=== PATIENT | female | born 1975 | race Two or more races ===

== ENCOUNTER 2016-09-17 23:41 | Emergency (ER) | payer SELFPAY ==
[~2016-09-17] VITALS: Ht 149.9 cm; Wt 90.3 kg
[2016-09-18 00:30] LABS: Basophils # (auto) 0.1 uL; Basophils % (auto) 0.4 % (0.0-2.0); DEFINITIVE VIEW TRANSMISSION; Eosinophils # (auto) 0.1 uL; Eosinophils % (auto) 1.1 % (0.0-7.0); Hematocrit 32.4 % (36.0-46.0); Hemoglobin 10.2 g/dL (12.2-16.2); Lymphocytes # (auto) 4.3 uL; Lymphocytes % (auto) 31.5 % (10.0-50.0); Mean Corpuscular Hemoglobin 23.6 pg (28.0-32.0); Mean Corpuscular Hgb Conc. 31.6 g/dL (32.0-36.0); Mean Corpuscular Volume 74.6 fL (80.0-100.0); Mean Platelet Volume 7.5 fL (7.4-10.4); Monocytes # (auto) 0.8 uL; Monocytes % (auto) 5.9 % (0.0-12.0); Neutrophils # (auto) 8.3 uL; Neutrophils % (auto) 61.1 % (37.0-80.0); Platelet Count (auto) 478 10^3/uL (140-450); Red Cell Distribution Width 18.7 % (11.6-16.0); White Blood Cell 13.5 10^3/uL (4.4-10.8)
[2016-09-18 00:54] LABS: Urine Bilirubin Negative (Negative); Urine Blood Negative /uL (Negative); Urine Color Yellow (Yellow); Urine Glucose Normal (Normal); Urine Ketone Negative (Negative); Urine Nitrite Negative (Negative); Urine RBC 2 /hpf (0 - 4); Urine Squamous Epithelial Cell MOD /hpf (<5); Urine Urobilinogen Normal (Negative); Urine pH 5.5 (5.0-8.0)
[2016-09-18 00:56] LABS: Albumin 3.5 g/dL (3.4-5.0); BUN/Creatinine Ratio 26.3; Calcium 8.4 mg/dL (8.5-10.1); Potassium 3.6 mmol/L (3.5-5.1)
[2016-09-18 00:59] LABS: Bilirubin, Total 0.1 mg/dL (0.2-1.0); Total Protein 7.7 g/dL (6.4-8.2)
[2016-09-18] MEDS ORDERED: SODIUM CHLORIDE 0.9% 1,000 ML IV ONE (02:00)
[2016-09-18] MEDS ORDERED: ACETAMINOPHEN/CODEINE#3 (300/30mg) TAB PO ONE (02:00)
[2016-09-18] MEDS ORDERED: cefTRIAXone 1GM/50ML D5W 50 ML IV ONE (02:00)
[2016-09-18 03:32] VITALS: BP 110/68
== END 2016-09-18 03:42 | disposition home or self-care (01) ==
LOC: ER 23:46
DX: R51 Headache (principal); N39.0 Urinary tract infection, site not specified; D64.9 Anemia, unspecified; E86.0 Dehydration; R42 Dizziness and giddiness; R25.3 Fasciculation
CPT/HCPCS: 36415; 70450; 80053; 81001; 81025; 85025; 94761; 96365; 99285; J0696; J7030

== ENCOUNTER 2017-05-26 09:44 | Emergency (ER) | payer MEDICAID ==
[2017-05-26 10:39] VITALS: BP 132/69
== END 2017-05-26 11:01 | disposition home or self-care (01) ==
LOC: ER 09:44 → EDUNIT# 09:44 → ER 11:01
DX: G89.29 Other chronic pain (principal); M54.5 Low back pain; Z87.442 Personal history of urinary calculi

== ENCOUNTER 2017-09-03 15:14 | Emergency (ER) | payer MEDICAID ==
[2017-09-03 19:18] VITALS: BP 97/55
[2017-09-03] MEDS ORDERED: IBUPROFEN 600 MG TAB PO ONE (19:30)
== END 2017-09-03 19:34 | disposition home or self-care (01) ==
LOC: ER 15:18
DX: J02.9 Acute pharyngitis, unspecified (principal); J35.1 Hypertrophy of tonsils

== ENCOUNTER 2025-05-02 13:11 | Emergency (ER) | payer OTHER ==
[~2025-05-02] VITALS: Ht 127 cm; Wt 110.3 kg
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
[2025-05-02] MEDS: ACETAMINOPHEN 325 MG TAB PO ONE (14:22)
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
[2025-05-02] MEDS ORDERED: IBU600T PO (16:09)
[2025-05-02 16:27] VITALS: BP 133/65; PULSE 71; RESP 18; TEMP 98.1; O2SAT 98
== END 2025-05-02 16:30 | disposition home or self-care (01) ==
LOC: ER 13:19
DX: S00.83XA Contusion of other part of head, initial encounter (principal); S40.022A Contusion of left upper arm, initial encounter; V89.2XXA Person injured in unspecified motor-vehicle accident, traffic, initial encounter; Y93.89 Activity, other specified; Y92.410 Unspecified street and highway as the place of occurrence of the external cause; Y99.8 Other external cause status
CPT/HCPCS: 70110; 73060; 81025